=== PATIENT | male | born 1945 | race Caucasian/White ===

== ENCOUNTER 2016-06-01 22:36 | Observation (INO) | payer MEDICARE ==
[~2016-06-01] VITALS: Ht 185.4 cm; Wt 102.1 kg
[~2016-06-01 22:36] MED LIST: ASPI81 PO; IBUP-238 PO; METO50TA OR
[2016-06-01] MEDS ORDERED: SODIUM CHLORIDE 0.9% FLUSH 5 ML FLUSH IVF PRN (22:45)
[2016-06-01 22:50] VITALS: BP 168/89; PULSE 83; RESP 18; TEMP 97.8; O2SAT 99
--- NOTE | 2016-06-01 22:56 | PD ---
HPI . Chest pain Chief Complaint: Chest Pain Time Seen by Provider: 22:44 Travel History International Travel<30 days: No Contact w/Intl Traveler<30days: No History of Present Illness HPI Patient presents with chest pain for 45 minutes. He states that he is mildly short of breath. He denies nausea or diaphoresis. He denies any previous similar history PFSH Past Medical History Narrative Medical Patient has a pacemaker because of symptomatic bradycardia. This was discovered when he was treated for blunt chest trauma with resultant rib fractures and pleural effusion. Coronary Artery Disease: Yes Hypertension: Yes Neurologic: No Respiratory: No Past Surgical History Abdominal Surgery: Yes (umbilical hernia repair 2006) Pacemaker: Yes ([employer]) Thoracic Surgery: Yes (LUNG DETORICATION TRAUMA) Other Surgery: Yes Social History Alcohol Use: Yes (ONE CROWN PER DAY) Tobacco Use: Yes (2-3 CIGS PER DAY) Substance Use: No Allergies-Medications (Allergen,Severity, Reaction): Coded Allergies: No Known Allergies (Verified , 12/18/09) Reported Meds & Prescriptions Reported Meds & Active Scripts Active Reported Aspirin 81 Mg Chew 81 Mg CHEW DAILY Amlodipine (Amlodipine Besylate) 2.5 Mg Tab 2.5 Mg PO DAILY Metoprolol Tartrate 50 Mg Tab 50 Mg PO DAILY Review of Systems Except as stated in HPI: all other systems reviewed are Neg Cardiovascular: Positive: Chest Pain or Discomfort Respiratory: Positive: Shortness of Breath Gastrointestinal: No: Nausea, Vomiting Skin: Positive Other (no diaphoresis) Neurologic: No: Dizziness Physical Exam Narrative GEN: healthy appearing gentleman in no acute distress HEENT: NC/AT NECK: FROM without pain. no masses CV: regular rate and rhythm without murmurs. LUNGS: clear to auscultation with no respiratory distress. He does have some chest wall tenderness. ABD: soft and NT with normal BS MS: no deformity. no peripheral edema. NEURO: awake and alert. no obvious CN abnormality. moves all extremities equally. SKIN: warm and dry. PSYCH: appropriate mood and affect. judgment normal. Data Data Last Documented VS Vital Signs Date Time Temp Pulse Resp B/P Pulse Ox O2 Delivery O2 Flow Rate FiO2 06/01/16 23:44 80 18 138/83 98 Room Air 148/84 06/01/16 22:50 97.8 Orders Basic Metabolic Panel (Bmp) (06/01/16 22:44) Ckmb (Isoenzyme) Profile (06/01/16 22:44) Complete Blood Count With Diff (06/01/16 22:44) Magnesium (Mg) (06/01/16 22:44) Troponin I (06/01/16 22:44) Chest, Single Ap (06/01/16 22:44) Ecg Monitoring (06/01/16 22:44) Bilateral Bp Monitoring (06/01/16 22:44) Iv Access Insert/Monitor (06/01/16 22:44) Oximetry (06/01/16 22:44) Oxygen Administration (06/01/16 22:44) Sodium Chloride 0.9% Flush (Ns Flush) (06/01/16 22:45) Aspirin Chew (Aspirin Chew) (06/01/16 23:00) Morphine Inj (Morphine Inj) (06/01/16 23:00) Nitroglycerin Sl (Nitrostat Sl) (06/01/16 23:00) Enoxaparin Inj (Lovenox Inj) (06/01/16 23:00) Clopidogrel (Plavix) (06/01/16 23:00) Nitroglycerin 2% Oint (Nitroglycerin 2% (06/01/16 23:45) Admit Order (Ed Use Only) (06/01/16 23:48) Place In Observation (06/01/16 23:48) Activity Bed Rest With Brp (06/01/16 23:48) Vital Signs (Adult) Q4H (06/01/16 23:48) Cardiac Rhythm .As Directed (06/01/16 23:48) ^ Notify Dr: Other .PRN (06/01/16 23:48) ^ Notify Dr. Parameters (06/01/16 23:48) Resp Oxygen Nasal Cannula (06/01/16 ) Diet Npo (06/02/16 Breakfast) Ckmb (Isoenzyme) Profile (06/02/16 02:00) Ckmb (Isoenzyme) Profile (06/02/16 05:00) Troponin I (06/02/16 02:00) Troponin I (06/02/16 05:00) Electrocardiogram (06/02/16 02:00) Electrocardiogram (06/02/16 05:00) ^ Obtain (06/01/16 23:48) Sodium Chloride 0.9% Flush (Ns Flush) (06/02/16 00:00) Sodium Chloride 0.9% Flush (Ns Flush) (06/02/16 09:00) Morphine Inj (Morphine Inj) (06/02/16 00:00) Nitroglycerin 2% Oint (Nitroglycerin 2% (06/02/16 00:00) Aspirin (Aspirin) (06/02/16 09:00) Enoxaparin Inj (Lovenox Inj) (06/02/16 00:00) Scd Bilateral/Knee High TALIB.BID (06/01/16 23:48) Labs Laboratory Tests Test 06/01/16 23:00 White Blood Count 7.7 TH/MM3 Red Blood Count 4.61 MIL/MM3 Hemoglobin 15.4 GM/DL Hematocrit 45.0 % Mean Corpuscular Volume 97.6 FL Mean Corpuscular Hemoglobin 33.5 PG Mean Corpuscular Hemoglobin 34.3 % Concent Red Cell Distribution Width 12.5 % Platelet Count 183 TH/MM3 Mean Platelet Volume 8.7 FL Neutrophils (%) (Auto) 58.5 % Lymphocytes (%) (Auto) 26.5 % Monocytes (%) (Auto) 10.5 % Eosinophils (%) (Auto) 3.1 % Basophils (%) (Auto) 1.4 % Neutrophils # (Auto) 4.6 TH/MM3 Lymphocytes # (Auto) 2.0 TH/MM3 Monocytes # (Auto) 0.8 TH/MM3 Eosinophils # (Auto) 0.2 TH/MM3 Basophils # (Auto) 0.1 TH/MM3 CBC Comment DIFF FINAL Differential Comment Sodium Level 142 MEQ/L Potassium Level 3.7 MEQ/L Chloride Level 107 MEQ/L Carbon Dioxide Level 27.3 MEQ/L Anion Gap 8 MEQ/L Blood Urea Nitrogen 18 MG/DL Creatinine 1.00 MG/DL Estimat Glomerular Filtration 73 ML/MIN Rate Random Glucose 137 MG/DL Calcium Level 10.0 MG/DL Magnesium Level 1.9 MG/DL Total Creatine Kinase 95 U/L Troponin I 0.02 NG/ML MDM Medical Decision Making Medical Screen Exam Complete: Yes Emergency Medical Condition: Yes Interpretation(s) EKG shows a sinus rhythm with multifocal PVCs. No ST segment elevation or depression. Except for the multifocal PVCs, this EKG is unchanged from previous. He did have a previous EKG that showed PVCs but they were unifocal. Differential Diagnosis Differential diagnosis of chest pain includes but is not limited to musculoskeletal pain, pulmonary embolism, acute coronary syndrome, pneumonia, pleurisy Narrative Course Patient presents for the evaluation of chest pain. CBC is normal. Chemistries are normal. Cardiac enzymes are negative. Chest x-ray to my interpretation is negative for infiltrate or pulmonary edema. I have discussed that an overnight stay in the chest pain center with the patient. He may very well leave AMA but I am going to go and put the order in for him to go to chest pain center. He reports that he is now pain-free. But, he has been treated with aspirin, Plavix, Lovenox, morphine and one sublingual nitroglycerin. Critical Care Narrative Aggregate critical care time was 30 minutes. Time to perform other separately billable procedures was not included in the critical care time. My time did not include minutes spent treating any other patients simultaneously or on activities that did not directly contribute to the patient's treatment. The services I provided to this patient were to treat and/or prevent clinically significant deterioration that could result in: Fatal dysrhythmia, cardiac disability, MT I provided critical care services requiring my management, as noted below: Chart data review, documentation time, medication orders and management, vital sign assessments/reviewing monitor data, ordering and reviewing lab tests, ordering and interpreting/reviewing x-rays and diagnostic studies, care of the patient and discussion of the patient with the admitting physicians. Diagnosis Primary Impression: Chest pain Qualified Code: R07.9 - Chest pain, unspecified type Admitting Information Admitting Physician Requests: Admit Condition: Stable Graciela Wilson MD Jun 01, 2016 22:56
[2016-06-01] MEDS ORDERED: MORPHINE SULFATE 4 MG/ML INJ IV PUSH ONE (23:00)
[2016-06-01] MEDS ORDERED: ASPIRIN 81 MG CHEW TAB PO ONE (23:00)
[2016-06-01] MEDS ORDERED: CLOPIDOGREL 300 MG TAB PO ONE (23:00)
[2016-06-01] MEDS ORDERED: ENOXAPARIN SODIUM 100 MG/ML SYRINGE SQ ONE (23:00)
[2016-06-01] MEDS ORDERED: CLOPIDOGREL 75 MG TAB PO ONE (23:00)
[2016-06-01 23:06] LABS: AUTOMATED NEUTROPHIL # 4.6 TH/MM3 (1.8-7.7); BASOPHIL # 0.1 TH/MM3 (0-0.2); BASOPHIL % 1.4 % (0.0-2.0); EOSINOPHIL # 0.2 TH/MM3 (0-0.4); EOSINOPHIL % 3.1 % (0.0-4.0); HEMO FLAGS DIFF FINAL; LYMPH % 26.5 % (9.0-44.0); MEAN CELL VOLUME 97.6 FL (80.0-100.0); MEAN CORPUSCULAR HEMOGLOBIN 33.5 PG (27.0-34.0); MEAN CORPUSCULAR HGB CONC 34.3 % (32.0-36.0); MONO % 10.5 % (0.0-8.0); NEUT % 58.5 % (16.0-70.0); PLATELET COUNT 183 TH/MM3 (150-450); RED BLOOD COUNT 4.61 MIL/MM3 (4.50-5.90); RED CELL DISTRIBUTION WIDTH 12.5 % (11.6-17.2); WHITE BLOOD COUNT 7.7 TH/MM3 (4.0-11.0)
[2016-06-01] MEDS: NITROGLYCERIN 0.4 MG SL 25 TABS/BTL SL SCH ×3 (23:09→23:15)
[2016-06-01 23:11] LABS: POTASSIUM 3.7 MEQ/L (3.5-5.1)
[2016-06-01 23:14] LABS: BICARBONATE 27.3 MEQ/L (21.0-32.0); MAGNESIUM 1.9 MG/DL (1.5-2.5)
[2016-06-01 23:19] VITALS: BP 150/78; PULSE 82; RESP 18; O2SAT 100
[2016-06-01 23:21] VITALS: BP 122/66; PULSE 78; RESP 18; O2SAT 99
--- NOTE | 2016-06-01 23:38 | RADHPO ---
EXAM DATE/TIME: 06/01/2016 22:58 [facility] COMPARISON: CHEST SINGLE AP, January 17, 2010, 13:57. INDICATIONS : Chest pain. MEDICAL HISTORY : Hypertension. CAD, Lung trauma SURGICAL HISTORY : Pacemaker. Umbilical hernia repair. ORIF left hand ENCOUNTER: Initial ACUITY: 1 day PAIN SCORE: 110 LOCATION: Bilateral chest FINDINGS: A single view of the chest demonstrates the lungs to be symmetrically aerated without focal infiltrat e or evidence of pleural effusion. The heart is normal in size and configuration. No acute findings in the fossa structures. Cardiac pacer leads project over the right atrium and right ventricle. CONCLUSION: The lungs are clear. John Fried MD on June 01, 2016 at 23:35 Board Certified Radiologist. This report was verified electronically.
[2016-06-01 23:44] VITALS: BP_SYST 138; BP_SYST 148; BP_DIAS 83; BP_DIAS 84; PULSE 80; RESP 18; O2SAT 98
[2016-06-01] MEDS ORDERED: NITROGLYCERIN 2% OINT 1 GM PACKET TOPICAL ONE (23:45)
[2016-06-01] MEDS ORDERED: METO50TA PO (23:59)
[2016-06-01] MEDS ORDERED: ASPI81CH CHEW (23:59)
[2016-06-01] MEDS ORDERED: AMLO2.5T PO (23:59)
[2016-06-02] VITALS (7 sets, daily range): BP systolic 135–148; BP diastolic 75–89; PULSE 61–84; RESP 16–18; TEMP 96.5–97.5; O2SAT 91–98
[2016-06-02] MEDS ORDERED: ENOXAPARIN SODIUM 40 MG/0.4 ML SYRINGE SQ SCH
[2016-06-02] MEDS ORDERED: MORPHINE SULFATE 4 MG/ML INJ IV PRN
[2016-06-02] MEDS ORDERED: SODIUM CHLORIDE 0.9% FLUSH 5 ML FLUSH IVF PRN
[2016-06-02] MEDS: NITROGLYCERIN 2% OINT 1 GM PACKET TOP SCH ×3 (06:46→12:00)
[2016-06-02] MEDS ORDERED: SODIUM CHLORIDE 0.9% FLUSH 5 ML FLUSH IVF SCH (09:00)
[2016-06-02] MEDS ORDERED: ASPIRIN 325 MG TAB PO SCH (09:00)
[2016-06-02] MEDS ORDERED: amLODIPine BESYLATE 5 MG TAB PO SCH (10:00)
[2016-06-02] MEDS ORDERED: METOPROLOL TARTRATE 50 MG TAB PO SCH (10:00)
[2016-06-02] MEDS ORDERED: ASPIRIN 81 MG CHEW TAB CHEW SCH (10:00)
[2016-06-02] MEDS ORDERED: PNEUMOCOCCAL POLYVALENT INJ 25 MCG/0.5 ML SYR IM ONE (11:00)
[2016-06-02] MEDS ORDERED: INFLUENZA VIRUS VACCINE (QUADRIVALENT) 0.5 ML SYR IM ONE (11:00)
--- NOTE | 2016-06-02 12:32 | EKG ---
Date Performed: 06/01/2016 Time Performed: 22:41:32 PTAGE: 71 years EKG: Sinus rhythm with PVC(s). Abnormal ECG PREVIOUS TRACING : 01/12/2010 17.59 DOCTOR: Hussain Ryan Interpretating Date/Time 06/02/2016 12:30:27
--- NOTE | 2016-06-02 12:34 | EKG ---
Date Performed: 06/02/2016 Time Performed: 01:56:16 PTAGE: 71 years EKG: Sinus rhythm with borderline 1st degree A-V block Lateral ST-T changes are nonspecific Abnormal ECG NO PREVIOUS TRACING DOCTOR: Hussain Ryan Interpretating Date/Time 06/02/2016 12:32:27
--- NOTE | 2016-06-02 23:26 | EKG ---
Date Performed: 06/02/2016 Time Performed: 04:54:12 PTAGE: 71 years EKG: Sinus rhythm Anterolateral T wave changes are nonspecific Borderline ECG Compared to the PREVIOUS TRACING from 06/02/16 at 01:56, no significant change DOCTOR: Fransisco Weiss Interpretating Date/Time 06/02/2016 23:24:54
--- NOTE | 2016-06-03 09:09 | MH ---
cc: EVAN DELONG MD DATE OF ADMISSION: 06/01/2016 CHIEF COMPLAINT: Chest pain. HISTORY OF PRESENT ILLNESS This is a 71-year-old male with past medical-surgical history significant for symptomatic bradycardia status post pacemaker placement, history of hypertension, umbilical hernia repair, lung decortication secondary to trauma who came to the emergency room complaining of chest pain which stayed for 45 minutes. He denied any chest pain at the time of examination. He stated he was mildly short of breath which is gone now. He denied any nausea or diaphoresis. He denies any fever or chills. Denies any similar history in the past. Denies any other symptoms and other than that, nothing significant. PAST MEDICAL HISTORY/PAST SURGICAL HISTORY: As dictated above. SOCIAL HISTORY: He smoked two to three cigarettes a day for sixty years and also drinks on a daily basis. Denies any drug abuse. Lives at home with his . 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 FAMILY HISTORY: Nothing significant. ALLERGIES: NO KNOWN DRUG ALLERGIES. MEDICATIONS: 1. Aspirin 81 milligrams p.o. daily. 2. Amlodipine 2.5 milligrams p.o. daily. 3. Metoprolol 50 milligrams p.o. daily. REVIEW OF SYSTEMS: All review of systems negative at the time of examination. PHYSICAL EXAMINATION: GENERAL: On physical exam, this is a 71-year-old male sitting on the bed not in acute distress. VITAL SIGNS: Temperature 97.5, heart rate 65, respirations 18, blood pressure 144/89, 02 saturation 96% on room air. HEAD, EYES, EARS, NOSE, THROAT: Normocephalic and atraumatic. Extraocular muscles intact. Pupils equal, round and reactive to light and accommodation. Oral mucosa moist. NECK: The neck is supple. No visible thyromegaly or neck mass. Trachea is central. CARDIOVASCULAR: Regular rate and rhythm. RESPIRATORY: Clear to auscultation bilaterally. ABDOMEN: Abdomen soft and nontender. Bowel sounds audible. EXTREMITIES: No cyanosis or clubbing. Full range of motion of all extremities. NEUROLOGIC: Awake, alert and oriented times four. No focal deficits. SKIN: Warm and dry. PSYCHIATRIC: The patient is cooperative. Mood and affect is normal. LABS: CBC is totally unremarkable except for monos of 10.5 high. Basic metabolic profile totally unremarkable except for GFR of 73 low, glucose random 137 high, magnesium 1.9. Total creatine kinase 95. Troponin 0.02 x3. RADIOLOGICAL STUDIES: Chest x-ray done shows lungs are clear. ASSESSMENT AND PLAN: This is a 71-year-old male who came to the emergency room and diagnosed with: 1. Chest pain rule out acute coronary syndrome. Cardiac enzymes and troponin I x3 within normal limits. EKG does not show anything acute. Cardiology consulted. Further recommendations per cardiology. 2. History of hypertension. Continue home medications. 3. History of symptomatic bradycardia status post pacemaker placement. 4. History of umbilical hernia repair in 2006. We are going to manage the patient on a daily basis and make recommendations on a daily basis. Evan Delong MD EA/JOSS /11:44 AM /9:03 AM
== END 2016-06-02 12:49 | disposition left against medical advice (07) ==
LOC: PHED 22:36 → PHEDA 23:58 → PH3A 06-02 01:01
PROVIDERS: ADMIT Specialist; ATTEND Specialist
DX: R07.89 Other chest pain (principal); R00.1 Bradycardia, unspecified; I25.10 Atherosclerotic heart disease of native coronary artery without angina pectoris; I10 Essential (primary) hypertension; R94.31 Abnormal electrocardiogram [ECG] [EKG]; F17.210 Nicotine dependence, cigarettes, uncomplicated; Z23 Encounter for immunization; Z95.0 Presence of cardiac pacemaker
CPT/HCPCS: 71010; 80048; 82550; 83735; 84484; 85025; 90732; 93005; 96372; 96374; 99291; G0008; G0009; G0378; J1650; J2270; Q2038; 90471; 90686